=== PATIENT | male | born 1960 | race Caucasian/White ===

== ENCOUNTER 2016-10-10 15:27 | Emergency (ER) | payer OTHER ==
[2016-10-10] MEDS ORDERED: Sodium Chloride 0.9% 10 ML Syringe FLUSH PRN (16:19)
[2016-10-10] MEDS ORDERED: Sodium Chloride 0.9% 1,000 ML IV ONE (16:20)
--- NOTE | 2016-10-10 16:24 | EDM.PDOC ---
ED HPI DIABETIC EMERGENCY - General Chief Complaint: Diabetic Complaint Stated Complaint: Elevated blood sugar Time Seen by Provider: 10/10/16 16:00 Source of Information: Reports: Patient, Old records (Obtained from [facility] ), RN notes reviewed History Limitations: Reports: No limitations - History of Present Illness INITIAL COMMENTS - FREE TEXT/NARRATIVE: 55 year old male presents to the ED for evaluation of elevated glucose. He had routine labs drawn this morning at [facility]. His glucose at that time was 459. Dr. Overton adjusted his medications and set him up to see a physician office clin asst tomorrow. The patient borrowed a friend's glucometer later today and rechecekd his glucose at which time it was 539. This concerned him and is what prompted him to come to the ED. He denies fever, chills, nausea, diarrhea. He's had an ongoing cough since June. He says he coughs so hard it makes him vomit in the morning. He is able to keep food and fluids down throughout the day. He reports increased thirst as of lately. Dr. Overton also performed a chest x-ray today which was reportedly normal. He was started on Cephalexin for bronchitis and took his first dose this afternoon. He says he's felt fatigued lately. - Related Data Allergies/ADRs: Allergies Allergy/AdvReac Type Severity Reaction Status Date / Time No Known Allergies Allergy Verified 02/23/14 13:21 Home Meds: Home Meds Allopurinol [Zyloprim] 300 mg PO DAILY 07/13/15 [History] Isosorbide Mononitrate [Imdur] 30 mg PO DAILY 07/13/15 [History] amLODIPine [Norvasc] 5 mg PO DAILY 07/13/15 [History] Canagliflozin/Metformin HCl [Invokamet 150-1,000 mg Tablet] 1 tab PO DAILY 10/10 [History] Cephalexin 500 mg PO BID 10/10/16 [History] Metoprolol Succinate 50 mg PO DAILY 10/10/16 [History] Sertraline [Zoloft] 50 mg PO DAILY 10/10/16 [History] SitaGLIPtin [Januvia] 100 mg PO DAILY 10/10/16 [History] Valsartan 320 mg PO DAILY 10/10/16 [History] atorvaSTATin [Lipitor] 40 mg PO DAILY 10/10/16 [History] Past Medical History Cardiovascular History: Reports: CAD, High cholesterol, Hypertension, [place] Gastrointestinal History: Reports: GERD Musculoskeletal History: Reports: Osteoarthritis Psychiatric History: Reports: Depression Endocrine/Metabolic History: Reports: Diabetes, type II - Past Surgical History GI Surgical History: Reports: Appendectomy, Yovani fundoplication Musculoskeletal Surgical History: Reports: Shoulder surgery Social & Family History - Tobacco Use Smoking Status *Q: Former Smoker Month Tobacco Last Used: 10 yrs - Caffeine Use Caffeine Use: Reports: Soda, Tea - Recreational Drug Use Recreational Drug Use: No - Living Situation & Occupation Living situation: Reports: with family ED ROS GENERAL - Review of Systems Review Of Systems: See Below Constitutional: Reports: fatigue. Denies: fever, chills, decreased appetite Respiratory: Reports: Cough. Denies: Shortness of Breath, Wheezing Cardiovascular: Reports: No symptoms. Denies: Chest pain Endocrine: Reports: high glucose, polydypsia. Denies: polyuria GI/Abdominal: Reports: Vomiting. Denies: Abdominal pain, Diarrhea, Nausea Neurological: Reports: No Symptoms. Denies: Headache ED EXAM GENERAL NO PERIP PULSE - Physical Exam Exam: See Below Exam Limited By: No limitations General Appearance: alert, WD/WN, no apparent distress Respiratory/Chest: no respiratory distress, lungs clear, normal breath sounds, no accessory muscle use Cardiovascular: regular rate, rhythm, no edema GI/Abdominal: normal bowel sounds, soft, non tender Neurological: alert, oriented, CN II-XII intact, normal cognition Skin Exam: Warm, Dry, Intact Course - Vital Signs Last Recorded V/S: Last Vital Signs Temp 97.0 F 10/10/16 15:35 Pulse 77 10/10/16 15:35 Resp 20 10/10/16 15:35 BP 111/88 10/10/16 15:35 Pulse Ox 95 10/10/16 15:35 - Orders/Labs/Meds Orders: Active Orders 24 hr Category Date Time Status Blood Glucose Check, Bedside [RC] ONETIME Care 10/10/16 16:10 Active Blood Glucose Check, Bedside [RC] ONETIME Care 10/10/16 17:38 Active Peripheral IV Care [RC] . DIRECTED Care 10/10/16 16:19 Active Sodium Chloride 0.9% [Saline Flush] Med 10/10/16 16:19 Active 10 ml FLUSH ASDIRECTED PRN Peripheral IV Insertion Adult [OM.PC] Stat Oth 10/10/16 16:19 Ordered Medication Orders Sodium Chloride (Saline Flush) 10 ml FLUSH ASDIRECTED PRN PRN Reason: Keep Vein Open Last Admin: 10/10/16 16:42 Dose: 10 ml Labs: Laboratory Tests 10/10/16 10/10/16 10/10/16 Range/Units 16:05 16:05 16:17 POC Glucose 306 H (70-105) mg/dL Serum Osmolality 305 H (280-300) mosm/kg Ketones 0.56 (0.0-0.3) mM 10/10/16 Range/Units 18:04 POC Glucose 348 H (70-105) mg/dL Serum Osmolality (280-300) mosm/kg Ketones (0.0-0.3) mM Meds: Medications Generic Name Dose Route Start Last Admin Trade Name Freq PRN Reason Stop Dose Admin Sodium Chloride 10 ml 10/10/16 16:19 10/10/16 16:42 Saline Flush FLUSH 10 ml ASDIRECTED PRN Administration Keep Vein Open Discontinued Medications Generic Name Dose Route Start Last Admin Trade Name Freq PRN Reason Stop Dose Admin Sodium Chloride 1,000 mls @ 999 mls/hr 10/10/16 16:20 10/10/16 16:40 Normal Saline IV 10/10/16 17:20 999 mls/hr ONETIME ONE Administration - Re-Assessments/Exams Free Text/Narrative Re-Assessment/Exam: Labs obtained from [facility]: CBC: WBC 10.8, H&H 14 and 42. Normal differential CMP: glucose 459, BUN 38, creatinine 1.71, sodium 132, potassium 4.4, chloride 95, anion gap 19, AST 44, ALT 63, Alk phos 170. [facility] reported that hepatitis c labs are pending. UA: trace ketones Initial glucose on arrival to ED was 306. The accuracy of the borrowed glucometer used at home is uncertain. This was discussed with the patient. I discussed this patient with Dr. Silva who recommends IV fluid bolus for dehydration and checking serum ketones and osmolality. 10/10/16 18:55 Serum osmo was delayed in the lab. Serum osmo came back at upper limits of normal 305. Will discharge patient home. He has close follow-up at [facility] scheduled for tomorrow. Discharge instructions as documented. Departure - Departure Time of Disposition: 18:57 Disposition: Home, Self-Care 01 Condition: good Clinical Impression: Hyperglycemia Instructions: Hyperglycemia Referrals: Neeraj Culver MD [Primary Care Provider] - Forms: ED Department Discharge Additional Instructions: Follow-up with electrical logging engineer tomorrow as scheduled Follow-up with Dr. Overton as soon as possible Return to ER with any worsening symptoms or additional concerns, or if you blood sugar remains elevated for two consecutive blood sugar checks. Continue your medications as prescribed Drink plenty of fluids - My Orders Last 24 Hours: My Active Orders 10/10/16 16:10 Blood Glucose Check, Bedside [RC] ONETIME 10/10/16 16:19 Peripheral IV Care [RC] . DIRECTED Sodium Chloride 0.9% [Saline Flush] 10 ml FLUSH ASDIRECTED PRN Peripheral IV Insertion Adult [OM.PC] Stat 10/10/16 17:38 Blood Glucose Check, Bedside [RC] ONETIME - Assessment/Plan Last 24 Hours: My Active Orders 10/10/16 16:10 Blood Glucose Check, Bedside [RC] ONETIME 10/10/16 16:19 Peripheral IV Care [RC] . DIRECTED Sodium Chloride 0.9% [Saline Flush] 10 ml FLUSH ASDIRECTED PRN Peripheral IV Insertion Adult [OM.PC] Stat 10/10/16 17:38 Blood Glucose Check, Bedside [RC] ONETIME
[2016-10-10 19:01] VITALS: BP 125/84
== END 2016-10-10 18:55 | disposition home or self-care (01) ==
LOC: JD.ED 15:27
DX: E11.65 Type 2 diabetes mellitus with hyperglycemia (principal); Z79.84 Long term (current) use of oral hypoglycemic drugs; I25.10 Atherosclerotic heart disease of native coronary artery without angina pectoris; I10 Essential (primary) hypertension; E78.00 Pure hypercholesterolemia, unspecified; L21.9 Seborrheic dermatitis, unspecified; M19.90 Unspecified osteoarthritis, unspecified site; F32.9 Major depressive disorder, single episode, unspecified; Z87.891 Personal history of nicotine dependence; Z79.899 Other long term (current) drug therapy
CPT/HCPCS: 36415; 82009; 82962; 83930; 96360; 99284; J7040; J7050; 99283

== ENCOUNTER 2016-11-17 14:06 | Emergency (ER) | payer OTHER ==
--- NOTE | 2016-11-17 14:16 | EDM.PDOC ---
ED HPI LOWER BACK PAIN/INJURY - General Chief Complaint: Genitourinary Problem Stated Complaint: BACK PAIN Time Seen by Provider: 11/17/16 14:16 - History of Present Illness INITIAL COMMENTS - FREE TEXT/NARRATIVE: 54-year-old male presents emergency room with pain with voiding. This pain started roughly 2-2 and half hours prior to arrival he has discomfort when trying to avoid and he has a vague right-sided ache however he denies really any sort of significant pain in his flanks he does not have pain that shoots into his testicles. He does describe pain on his penis when he tries to go and when he has to go but when he goes he just voids a very small amount. Patient denies any fevers or chills has not noticed any blood in his urine. The patient has a history of type 2 diabetes this is recently getting much better with more aggressive weight loss and treatment. Past medical history significant for appendicitis when he was much younger. Patient had an [place] about 10 years ago he has not had recent problems with chest pain or chest pressure or anginal equivalents. - Related Data Allergies/ADRs: Allergies Allergy/AdvReac Type Severity Reaction Status Date / Time No Known Allergies Allergy Verified 11/17/16 14:22 Home Meds: Home Meds Allopurinol [Zyloprim] 300 mg PO DAILY 07/13/15 [History] Isosorbide Mononitrate [Imdur] 30 mg PO DAILY 07/13/15 [History] Canagliflozin/Metformin HCl [Invokamet 150-1,000 mg Tablet] 1 tab PO DAILY 10/10 [History] Metoprolol Succinate 50 mg PO DAILY 10/10/16 [History] Sertraline [Zoloft] 50 mg PO DAILY 10/10/16 [History] SitaGLIPtin [Januvia] 100 mg PO DAILY 10/10/16 [History] Valsartan 320 mg PO DAILY 10/10/16 [History] atorvaSTATin [Lipitor] 40 mg PO DAILY 10/10/16 [History] Aspirin [Children's Aspirin] 81 mg PO DAILY 11/17/16 [History] Tamsulosin [Flomax] 0.4 mg PO Q24H #7 cap.er 11/17/16 [Rx] Past Medical History Cardiovascular History: Reports: CAD, High cholesterol, Hypertension, [place] Gastrointestinal History: Reports: GERD Musculoskeletal History: Reports: Osteoarthritis Psychiatric History: Reports: Depression Endocrine/Metabolic History: Reports: Diabetes, type II - Past Surgical History GI Surgical History: Reports: Appendectomy, Oyvani fundoplication Musculoskeletal Surgical History: Reports: Shoulder surgery Social & Family History - Tobacco Use Smoking Status *Q: Former Smoker Month Tobacco Last Used: 10 yrs - Caffeine Use Caffeine Use: Reports: Soda, Tea - Recreational Drug Use Recreational Drug Use: No - Living Situation & Occupation Living situation: Reports: with family ED ROS GENERAL - Review of Systems Review Of Systems: See Below Constitutional: Reports: no symptoms Respiratory: Reports: No Symptoms Cardiovascular: Reports: No symptoms GI/Abdominal: Reports: Abdominal pain (Vague pressure perhaps in the right side) : Reports: dysuria, frequency. Denies: discharge, flank pain, hematuria Musculoskeletal: Reports: no symptoms Skin: Reports: no symptoms Neurological: Reports: No Symptoms ED EXAM,LOWER BACK PAIN/INJURY - Physical Exam Exam: See Below Exam Limited By: No limitations General Appearance: alert, no apparent distress Head: atraumatic, normocephalic Respiratory/Chest: no respiratory distress, lungs clear, normal breath sounds Cardiovascular: regular rate, rhythm, no edema, no murmur GI/Abdominal: normal bowel sounds, soft, non tender (Male) Exam: No hernia, Normal inspection, Circumcised. No: Penile lesions, Scrotal swelling, Scrotum tenderness (L), Scrotum tenderness (R), Suprapubic fullness Back Exam: normal inspection. No: CVA tenderness (L), CVA tenderness (R) Extremities: normal inspection, no pedal edema Course - Vital Signs Last Recorded V/S: Last Vital Signs Temp 36.5 C 11/17/16 14:10 Pulse 71 11/17/16 19:22 Resp 18 11/17/16 14:10 BP 105/74 11/17/16 19:22 Pulse Ox 98 11/17/16 19:22 - Orders/Labs/Meds Orders: Active Orders 24 hr Category Date Time Status EKG Documentation Completion [RC] STAT Care 11/17/16 17:05 Active Labs: Laboratory Tests 11/17/16 11/17/16 11/17/16 Range/Units 14:30 15:10 15:10 WBC 11.94 H (4.23-9.07) K/mm3 RBC 4.07 L (4.63-6.08) M/mm3 Hgb 13.1 L (13.7-17.5) gm/L Hct 39.7 L (40.1-51.0) % MCV 97.5 H (79.0-92.2) fl MCH 32.2 (25.7-32.2) pg MCHC 33.0 (32.2-35.5) g/dl RDW Std Deviation 45.5 H (35.1-43.9) fL Plt Count 156 L (163-337) K/mm3 MPV 10.0 (9.4-12.3) fl Neutrophils % (Manual) 80 H (40-60) % Band Neutrophils % 0 (0-10) % Lymphocytes % (Manual) 14 L (20-40) % Atypical Lymphs % 0 % Monocytes % (Manual) 5 (2-10) % Eosinophils % (Manual) 1 (0.8-7.0) % Basophils % (Manual) 0 L (0.2-1.2) Platelet Estimate Adequate Plt Morphology Comment Normal RBC Morph Comment Normal Sodium 139 (136-145) mEq/L Potassium 5.8 H (3.5-5.1) mEq/L Chloride 107 (98-107) mEq/L Carbon Dioxide 18 L (21-32) mEq/L Anion Gap 19.8 H (5-15) BUN 49 H (7-18) mg/dL Creatinine 2.4 H (0.7-1.3) mg/dL Est Cr Clr Drug Dosing 32.46 mL/min Estimated GFR (MDRD) 28 (>60) mL/min BUN/Creatinine Ratio 20.4 H (14-18) Glucose 103 (74-106) mg/dL Uric Acid 4.4 (3.5-7.2) mg/dL Calcium 9.6 (8.5-10.1) mg/dL Urine Color Yellow (Yellow) Urine Appearance Clear (Clear) Urine pH 5.5 (5.0-8.0) Ur Specific [place] 1.025 (1.005-1.030) Urine Protein 2+ H (Negative) Urine Glucose (UA) 2+ H (Negative) Urine Ketones Negative (Negative) Urine Occult Blood 3+ H (Negative) Urine Nitrite Negative (Negative) Urine Bilirubin Negative (Negative) Urine Urobilinogen 0.2 (0.2-1.0) Ur Leukocyte Esterase Negative (Negative) Urine RBC 75-100 H (0-5) /hpf Urine WBC 0-5 (0-5) /hpf Ur Epithelial Cells 0-5 (0-5) /hpf Amorphous Sediment Few H (NOT SEEN) /hpf Urine Bacteria Moderate H (FEW) /hpf Urine Mucus Few (FEW) /hpf 11/17/16 Range/Units 16:12 WBC (4.23-9.07) K/mm3 RBC (4.63-6.08) M/mm3 Hgb (13.7-17.5) gm/L Hct (40.1-51.0) % MCV (79.0-92.2) fl MCH (25.7-32.2) pg MCHC (32.2-35.5) g/dl RDW Std Deviation (35.1-43.9) fL Plt Count (163-337) K/mm3 MPV (9.4-12.3) fl Neutrophils % (Manual) (40-60) % Band Neutrophils % (0-10) % Lymphocytes % (Manual) (20-40) % Atypical Lymphs % % Monocytes % (Manual) (2-10) % Eosinophils % (Manual) (0.8-7.0) % Basophils % (Manual) (0.2-1.2) Platelet Estimate Plt Morphology Comment RBC Morph Comment Sodium (136-145) mEq/L Potassium 5.8 H (3.5-5.1) mEq/L Chloride (98-107) mEq/L Carbon Dioxide (21-32) mEq/L Anion Gap (5-15) BUN (7-18) mg/dL Creatinine (0.7-1.3) mg/dL Est Cr Clr Drug Dosing mL/min Estimated GFR (MDRD) (>60) mL/min BUN/Creatinine Ratio (14-18) Glucose (74-106) mg/dL Uric Acid (3.5-7.2) mg/dL Calcium (8.5-10.1) mg/dL Urine Color (Yellow) Urine Appearance (Clear) Urine pH (5.0-8.0) Ur Specific [place] (1.005-1.030) Urine Protein (Negative) Urine Glucose (UA) (Negative) Urine Ketones (Negative) Urine Occult Blood (Negative) Urine Nitrite (Negative) Urine Bilirubin (Negative) Urine Urobilinogen (0.2-1.0) Ur Leukocyte Esterase (Negative) Urine RBC (0-5) /hpf Urine WBC (0-5) /hpf Ur Epithelial Cells (0-5) /hpf Amorphous Sediment (NOT SEEN) /hpf Urine Bacteria (FEW) /hpf Urine Mucus (FEW) /hpf Meds: Medications Discontinued Medications Generic Name Dose Route Start Last Admin Trade Name Freq PRN Reason Stop Dose Admin Hydrocodone Bitart/Acetaminophen 1 tab 11/17/16 16:51 11/17/16 17:24 [place] 325-5 Mg PO 11/17/16 16:52 1 tab ONETIME ONE Administration Sodium Chloride 2,000 mls @ 999 mls/hr 11/17/16 17:04 11/17/16 18:23 Normal Saline IV 11/17/16 19:04 999 mls/hr ONETIME ONE Infusion Sodium Chloride Confirm 11/17/16 18:23 11/17/16 18:24 Normal Saline Administered 11/17/16 18:24 Not Given Dose 1,000 mls @ as directed .ROUTE .STK-MED ONE Tamsulosin HCl 0.4 mg 11/17/16 16:51 11/17/16 17:25 Flomax PO 11/17/16 16:52 0.4 mg ONETIME ONE Administration - Re-Assessments/Exams Free Text/Narrative Re-Assessment/Exam: 11/17/16 15:11 He feels like he cannot completely empty his bladder. Bladder scan at most is 8 mls. 11/17/16 16:54 Laboratory evaluations concerning with a creatinine of 2.4 and potassium of 5.8 we repeated potassium it came back at 5.8. CAT scan was obtained which is a typical symptoms for kidney stone and microscopic hematuria Johanne.D. has kidney stone 1.5 mm stone located within the distal right ureter at the UVJ area With his increased potassium increased creatinine and increased BUN we'll give him a couple liters of NS and were to have to hold his metformin containing medications and hold his valsartan. 11/17/16 19:[address] Gordon who agrees with the disposition and will followup closely with the patient. Departure - Departure Time of Disposition: 19:08 Disposition: Home, Self-Care 01 Clinical Impression: Kidney stone on right side, Hyperkalemia, Renal insufficiency Prescriptions: Tamsulosin [Flomax] 0.4 mg PO Q24H #7 cap.er Instructions: Hyperkalemia, [id number], Kidney Stones, [id number] Referrals: Neeraj Culver MD [Primary Care Provider] - Forms: ED Department Discharge Additional Instructions: Return to the emergency room with any questions or problems. Stop Invokamet and valsartan. Followup with Dr. Gordon tomorrow you will need repeat blood work and further instructions on blood pressure and diabetes treatment. - My Orders Last 24 Hours: My Active Orders 11/17/16 17:05 EKG Documentation Completion [RC] STAT - Assessment/Plan Last 24 Hours: My Active Orders 11/17/16 17:05 EKG Documentation Completion [RC] STAT
--- NOTE | 2016-11-17 16:37 | CT ---
CT abdomen and pelvis Technique: Multiple axial sections were obtained from above the dome of the diaphragm inferiorly through the pubic symphysis. Intravenous and oral contrast was not utilized. Study has been performed as a ureteral stone protocol. Comparison: No previous abdominal imaging. Findings: Right and left kidneys show no abnormal calcifications. Right ureter is mildly prominent. This ureteral prominence is caused by a small stone measuring about 1.5-2 mm which is located within the distal ureter at the UVJ. No other abnormal calcifications are seen along the course of the ureters. Cyst is identified within the left kidney measuring approximately 2.9 cm. Visualized lung bases shows nothing acute. Liver shows minimal fatty infiltration. Spleen appears within normal limits. Increased density noted near the gastroesophageal junction presumably due to previous surgery. Adrenal glands show no nodule. Pancreas is within normal limits. Gallbladder shows no calcified gallstones. Aorta shows atherosclerotic change without aneurysmal dilatation. No retroperitoneal adenopathy or mesenteric abnormalities are seen. No pelvic mass or adenopathy is seen. No free fluid or inflammatory change is seen within the abdomen or within the pelvis. Appendix is not visualized with certainty. Bone window settings shows a unilateral spondylolytic defect on the right side at L5-S1. Mild scattered degenerative change is seen. Impression: 1. Slightly prominent right ureter caused by 1.5 mm stone located within the distal right ureter at the UVJ. 2. Other incidental findings as described above. Diagnostic code #3
[2016-11-17] MEDS ORDERED: Tamsulosin 0.4 MG Cap.ER PO ONE (16:51)
[2016-11-17] MEDS ORDERED: Acetaminophen/HYDROcodone 325-5 MG Tab PO ONE (16:51)
[2016-11-17] MEDS ORDERED: Sodium Chloride 0.9% 2,000 ML IV ONE (17:04)
[2016-11-17] MEDS ORDERED: Sodium Chloride 0.9% 1,000 ML ONE (18:23)
[2016-11-17 19:31] VITALS: BP 105/74
== END 2016-11-17 19:30 | disposition home or self-care (01) ==
LOC: JD.ED 14:06
DX: N20.0 Calculus of kidney (principal); E87.5 Hyperkalemia; N28.9 Disorder of kidney and ureter, unspecified; I10 Essential (primary) hypertension; I25.2 Old myocardial infarction; I25.10 Atherosclerotic heart disease of native coronary artery without angina pectoris; E78.00 Pure hypercholesterolemia, unspecified; K21.9 Gastro-esophageal reflux disease without esophagitis; E11.9 Type 2 diabetes mellitus without complications; F32.9 Major depressive disorder, single episode, unspecified; M19.90 Unspecified osteoarthritis, unspecified site; Z90.49 Acquired absence of other specified parts of digestive tract; Z98.890 Other specified postprocedural states; Z87.891 Personal history of nicotine dependence; Z79.82 Long term (current) use of aspirin; Z79.899 Other long term (current) drug therapy
CPT/HCPCS: 36415; 74176; 80048; 81001; 84132; 84550; 85025; 93005; 96360; 96361; 99283; A9270; J7040; 99284; 99284-25

== ENCOUNTER 2019-08-18 06:39 | Emergency (ER) | payer OTHER ==
[2019-08-18 06:50] VITALS: BP 168/128; PULSE 86
[2019-08-18] MEDS ORDERED: Lidocaine 1% with EPINEPHrine 1:100,000 20 ML MDV INJECT ONE (07:00)
[2019-08-18] MEDS ORDERED: Lidocaine/EPINEPHrine/Tetracaine Soln 1 ML TOP ONE (07:00)
--- NOTE | 2019-08-18 07:04 | EDM.PDOC ---
ED HPI GENERAL MEDICAL PROBLEM - General Chief Complaint: Skin Complaint Stated Complaint: BOIL NEAR GROIN AREA Time Seen by Provider: 08/18/19 06:56 Source of Information: Reports: Patient History Limitations: Reports: No Limitations - History of Present Illness INITIAL COMMENTS - FREE TEXT/NARRATIVE: The patient presents with an abscess to the left groin. This has been bothering him for a couple weeks. It seemed to be getting better for a few days but now it has gotten larger and more painful. He has no fever or chills. Onset: Gradual Duration: Week(s): Location: Reports: Other (Left groin) Quality: Reports: Sharp Severity: Moderate Improves with: Reports: None Worsens with: Reports: None Associated Symptoms: Reports: No Other Symptoms Left Leg Pain Score (Numeric/FACES): 8 - Related Data Allergies Allergy/AdvReac Type Severity Reaction Status Date / Time No Known Allergies Allergy Verified 08/18/19 06:46 Home Meds: Home Meds Cephalexin [Keflex] 500 mg PO QID #40 capsule 08/18/19 [Rx] Ibuprofen 800 mg PO ONCALL PRN 08/18/19 [History] Past Medical History HEENT History: Reports: Impaired Vision Other HEENT History: Wears glasses Cardiovascular History: Reports: CAD, High Cholesterol, Hypertension, [place] Gastrointestinal History: Reports: GERD Genitourinary History: Reports: Renal Calculus Musculoskeletal History: Reports: Osteoarthritis Psychiatric History: Reports: Depression Endocrine/Metabolic History: Reports: Diabetes, Type II - Past Surgical History GI Surgical History: Reports: Appendectomy, Yovani Fundoplication Musculoskeletal Surgical History: Reports: Shoulder Surgery Social & Family History - Family History Family Medical History: Noncontributory - Tobacco Use Smoking Status *Q: Current Every Day Smoker Years of Tobacco use: 35 Packs/Tins Daily: 0.2 - Caffeine Use Caffeine Use: Reports: Soda, Tea - Alcohol Use Days Per Week of Alcohol Use: 3 Number of Drinks Per Day: 2 Total Drinks Per Week: 6 - Recreational Drug Use Recreational Drug Use: No - Living Situation & Occupation Living situation: Reports: with Family ED ROS GENERAL - Review of Systems Review Of Systems: See Below Constitutional: Reports: No Symptoms HEENT: Reports: No Symptoms Respiratory: Reports: No Symptoms Cardiovascular: Reports: No Symptoms Endocrine: Reports: No Symptoms GI/Abdominal: Reports: No Symptoms : Reports: No Symptoms Musculoskeletal: Reports: Other (Left groin abscess) ED EXAM, SKIN/RASH Exam: See Below Exam Limited By: No Limitations General Appearance: Alert, No Apparent Distress Ears: Normal External Exam Nose: Normal Inspection Head: Atraumatic, Normocephalic Neck: Normal Inspection Respiratory/Chest: No Respiratory Distress Extremities: Other (Left groin has some erythema and edema and an abscess with fluctuance) ED SKIN PROCEDURES - I&D Site: Left groin Skin Prep: Other (Chlorprep) Local Anesthesia: Lidocaine: 1% with EPI (and LET) Drainage: Purulent, Bloody, Large Amount Probed to Break Up Loculations: Yes Packed With: 1/2 in. Iodoform Complications: No Course - Vital Signs Last Recorded V/S: Last Vital Signs Temp 97.4 F 08/18/19 06:47 Pulse 86 08/18/19 06:47 Resp 18 08/18/19 06:47 BP 168/128 H 08/18/19 06:47 Pulse Ox 93 L 08/18/19 06:47 - Orders/Labs/Meds Meds: Medications Discontinued Medications Generic Name Dose Route Start Last Admin Trade Name Dulce PRN Reason Stop Dose Admin Lidocaine/Epinephrine 20 ml 08/18/19 07:00 08/18/19 07:11 Xylocaine 1% With Epinephrine 1:100,000 INJECT 08/18/19 07:01 20 ml ONETIME ONE Administration Lidocaine/Tetracaine 1 ml 08/18/19 07:00 08/18/19 07:11 Let Soln TOP 08/18/19 07:01 1 ml ONETIME ONE Administration - Re-Assessments/Exams Free Text/Narrative Re-Assessment/Exam: 08/18/19 07:04 I will drain the abscess. Departure - Departure Time of Disposition: 07:55 Disposition: Home, Self-Care 01 Condition: Good Clinical Impression: Abscess - Discharge Information *PRESCRIPTION DRUG MONITORING PROGRAM REVIEWED*: No *COPY OF PRESCRIPTION DRUG MONITORING REPORT IN PATIENT BJORN: No Prescriptions: Cephalexin [Keflex] 500 mg PO QID #40 capsule Referrals: PCP,None [Primary Care Provider] - Brian Tariq MD [Physician] - 1 Week Forms: ED Department Discharge Additional Instructions: Soak in a sits bath with soapy water 2 times per day for 5 days. Have the packing removed in about 3 to 5 days. If if falls out sooner that is okay. Take the keflex 4 times per day for 10 days. I obtained cultures. If I need to change the antibiotics I will call you. Please return if you are worse. Sepsis Event Note - Evaluation Sepsis Screening Result: No Definite Risk - Focused Exam Vital Signs: Vital Signs Temp Pulse Resp BP Pulse Ox 08/18/19 06:47 97.4 F 86 18 168/128 H 93 L Date Exam was Performed: 08/18/19 Time Exam was Performed: 07:50
== END 2019-08-18 08:08 | disposition home or self-care (01) ==
LOC: JD.ED 06:39
DX: L02.214 Cutaneous abscess of groin (principal); I25.10 Atherosclerotic heart disease of native coronary artery without angina pectoris; I10 Essential (primary) hypertension; I25.2 Old myocardial infarction; E11.9 Type 2 diabetes mellitus without complications; F17.210 Nicotine dependence, cigarettes, uncomplicated
CPT/HCPCS: 10060; 10061; 87075; 87076; 87077; 87181; 87186; 87205; 99283; 99283-25

== ENCOUNTER 2020-02-21 10:48 | Emergency (ER) | payer OTHER ==
--- NOTE | 2020-02-21 11:10 | EDM.PDOC ---
ED HPI GENERAL MEDICAL PROBLEM - General Chief Complaint: Lower Extremity Injury/Pain Stated Complaint: TOE IS TURNING BLACK Time Seen by Provider: 02/21/20 11:10 Source of Information: Reports: Patient History Limitations: Reports: No Limitations - History of Present Illness INITIAL COMMENTS - FREE TEXT/NARRATIVE: 59-year-old male presents to the ED with a deep dark purple discoloration to the distal aspect of his right great toe. He was concerned that he may be developing gangrene. He is a type II diabetic controlled with diet and is currently on no medications after losing 50 pounds of weight. 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 I suspect it is repetitive type trauma to the distal aspect of the toe to have precipitated the bruise or discoloration of the toe. He has no pain in the toe. Onset: Unknown/Unsure (Covered dark purple discoloration of the distal right gr eat toe this morning.) Onset Date: 02/21/20 Duration: Hour(s): Location: Reports: Lower Extremity, Right (Dark purple discoloration of the distal right great toe.) Quality: Reports: Other (No pain just purple discoloration) Severity: Moderate Improves with: Reports: None Worsens with: Reports: None Context: Reports: Other (No known injuries.). Denies: Activity, Exercise, Lifting, Sick Contact, Trauma Associated Symptoms: Reports: No Other Symptoms Treatments LAUNCHING [employer]: Reports: Other (see below) (None.) - Related Data Allergies Allergy/AdvReac Type Severity Reaction Status Date / Time No Known Allergies Allergy Verified 08/18/19 06:46 Home Meds: Home Meds Ibuprofen 800 mg PO ONCALL PRN 08/18/19 [History] cephALEXin [Keflex] 500 mg PO QID #40 capsule 08/18/19 [Rx] Past Medical History HEENT History: Reports: Hard of Hearing, Impaired Vision Other HEENT History: Wears glasses, bilateral hearing aides. Cardiovascular History: Reports: CAD, High Cholesterol, Hypertension, DC Gastrointestinal History: Reports: GERD Genitourinary History: Reports: Renal Calculus Musculoskeletal History: Reports: Fracture, Osteoarthritis Psychiatric History: Reports: Depression Endocrine/Metabolic History: Reports: Diabetes, Type II - Infectious Disease History Infectious Disease History: Reports: Chicken Pox, Measles, Mumps - Past Surgical History HEENT Surgical History: Reports: Adenoidectomy, Tonsillectomy GI Surgical History: Reports: Appendectomy, Yovani Fundoplication Musculoskeletal Surgical History: Reports: Shoulder Surgery Social & Family History - Family History Family Medical History: Noncontributory - Tobacco Use Smoking Status *Q: Never Smoker Second Hand Smoke Exposure: No - Caffeine Use Caffeine Use: Reports: Coffee - Alcohol Use Days Per Week of Alcohol Use: 4 Number of Drinks Per Day: 4 Total Drinks Per Week: 16 - Recreational Drug Use Recreational Drug Use: No - Living Situation & Occupation Living situation: Reports: , with Family Occupation: Employed Review of Systems - Review of Systems Review Of Systems: See Below Constitutional: Reports: No Symptoms Eyes: Reports: Glasses Mouth/Throat: Reports: No Symptoms Respiratory: Reports: No Symptoms Cardiovascular: Reports: No Symptoms GI/Abdominal: Reports: No Symptoms Genitourinary: Reports: Other (Urinary frequency with nocturia x2.) Musculoskeletal: Reports: Back Pain (And problems with low back pain) Skin: Reports: No Symptoms Neurological: Reports: No Symptoms Psychiatric: Reports: Depression, Mood Lability ED EXAM, GENERAL - Physical Exam Exam: See Below (Tree of depression in the past) Exam Limited By: No Limitations General Appearance: Alert, WD/WN, No Apparent Distress, Other (Temperature is 36.8 with heart rate of 88 and sinus respiratory is 20 with sats of 96% on room air BP is elevated at 207 120. He was advised that he will have to have his blood pressure checked more frequently. He is quite apprehensive the day and I suspect the reason for his elevated blood pressure) Eye Exam: Bilateral Eye: Normal Inspection Peripheral Pulses: 2+: Posterior Tibial (L), Posterior Tibial (R), Dorsalis Pedis (L), Dorsalis Pedis (R) Extremities: Other (Examination was limited to his right great toe. He has foot and toes are warm to palpation or at least normal temperature. There is ecchymoses of the dorsal aspect of the right great toe extending past the PIP joint bilaterally. It involves mostly the tip of the toe as well as the plantar surface. All of his toenails contain fungal infection.) Neurological: Alert, Oriented, CN II-XII Intact, Normal Cognition Psychiatric: Anxious Skin Exam: Warm, Dry, Intact, Normal Color, No Rash Course - Vital Signs Last Recorded V/S: Last Vital Signs Temp 36.8 C 02/21/20 10:55 Pulse 88 02/21/20 10:55 Resp 20 02/21/20 10:55 BP 207/120 H 02/21/20 10:55 Pulse Ox 96 02/21/20 10:55 - Radiology Interpretation Free Text/Narrative:: 59-year-old male presents to the ED for evaluation of purple discoloration of his right great toe that he discovered this morning in the shower. He has no pain in the toe. His concern was developing gangrene as he has a history of diabetes. However on examination there is a deep bruise or deep purple discoloration of the dorsal volar and tip of the great toe with no increased warmth or fluctuation. This is a deep tissue bruise or contusion likely due to repetitive trauma. Over the weekend he was on his knees a good deal placing paving stones with steel toed boots on place. I suspect this is the cause. Patient reassured no treatment is indicated at this time Departure - Departure Time of Disposition: 11:19 Disposition: Home, Self-Care 01 Condition: Fair Clinical Impression: Contusion of great toe, right Qualifiers: Encounter type: initial encounter Damage to nail status: without damage Qualified Code(s): S90.111A - Contusion of right great toe without damage to nail, initial encounter - Discharge Information *PRESCRIPTION DRUG MONITORING PROGRAM REVIEWED*: Not Applicable *COPY OF PRESCRIPTION DRUG MONITORING REPORT IN PATIENT BJORN: Not Applicable Instructions: Contusion Referrals: PCP,None [Primary Care Provider] - Forms: ED Department Discharge Additional Instructions: Evaluation in the emergency room today in regards to discovery of dark purple discoloration to the entire tip or distal aspect of the right great toe this morning. On examination this proves to be a deep tissue bruise likely from repetitive trauma from work done over the weekend while placing paving stones. The areas normal temperature and there is no evidence of poor blood supply to the toe to suggest developing gangrene. The bruise will resolve but it will take close to 3 weeks to completely dissipate. No treatment is advised. Sepsis Event Note (ED) - Evaluation Sepsis Screening Result: No Definite Risk - Focused Exam Vital Signs: Vital Signs Temp Pulse Resp BP Pulse Ox 02/21/20 10:55 36.8 C 88 20 207/120 H 96
[2020-02-21 11:35] VITALS: BP 211/116; PULSE 78
== END 2020-02-21 11:30 | disposition home or self-care (01) ==
LOC: JD.ED 10:48
DX: S90.111A Contusion of right great toe without damage to nail, initial encounter (principal); I10 Essential (primary) hypertension; E11.9 Type 2 diabetes mellitus without complications; I25.10 Atherosclerotic heart disease of native coronary artery without angina pectoris; I25.2 Old myocardial infarction; W22.8XXA Striking against or struck by other objects, initial encounter
CPT/HCPCS: 99283

== ENCOUNTER 2024-03-12 18:16 | Emergency (ER) | payer MEDICARE, OTHER ==
[2024-03-12 18:40] LABS: BASOPHILS ABSOLUTE AUTO 0.1 K/mm3 (0.0-0.2); BASOPHILS PERCENT AUTO 0.7 % (0.0-1.0); EOSINOPHILS ABSOLUTE AUTO 0.2 K/mm3 (0.0-0.4); EOSINOPHILS PERCENT AUTO 1.5 % (0.0-6.0); HEMATOCRIT 43.7 % (42.0-52.0); HEMOGLOBIN 15.4 gm/dl (14.0-18.0); IMMATURE GRAN ABSOLUTE AUTO 0.05 K/mm3 (0.00-0.05); IMMATURE GRAN PERCENT AUTO 0.5 % (0.0-0.4); LYMPHOCYTES ABSOLUTE AUTO 1.6 K/mm3 (1.0-4.8); LYMPHOCYTES PERCENT AUTO 14.6 % (24.0-44.0); MEAN CORPUSCULAR HEMOGLOBIN 34.5 pg (28.0-32.0); MEAN CORPUSCULAR HGB CONC 35.2 g/dl (32.0-36.0); MEAN CORPUSCULAR VOLUME 97.8 fl (83.0-99.0); MEAN PLATELET VOLUME 10.1 fl (9.4-12.4); MONOCYTES ABSOLUTE AUTO 0.9 K/mm3 (0.0-0.8); MONOCYTES PERCENT AUTO 8.6 % (0.0-8.0); NEUTROPHILS PERCENT AUTO 74.1 % (41.0-71.0); PLATELET COUNT,PLT 141 K/mm3 (150-400); RED BLOOD CELL COUNT 4.47 M/mm3 (4.52-5.90); WHITE BLOOD CELL COUNT,WBC 10.72 K/mm3 (3.9-11.3)
[2024-03-12 18:54] LABS: INR 1.1; PROTHROMBIN TIME 11.6 SECONDS (9.7-12.0)
[2024-03-12 18:55] LABS: PTT,PARTIAL THROMBOPLSTIN TIME 25.1 SECONDS (21.7-31.4)
[2024-03-12] MEDS: Iopamidol 755 Mg/ML 100 ML Bottle IVPUSH ONE (19:05)
[2024-03-12] MEDS: Sodium Chloride 0.9% 100 ML IV SCH (19:05)
[2024-03-12 19:07] LABS: ALANINE AMINOTRANSFERASE,ALT 52 U/L (16-63); ALBUMIN 4.1 g/dl (3.4-5.0); ALKALINE PHOSPHATASE 154 U/L (46-116); ANION GAP 16.8 (5-15); ASPARTATE AMNIOTRANSFERASE,AST 30 U/L (15-37); BILIRUBIN TOTAL 1.3 mg/dL (0.2-1.0); BLOOD UREA NITROGEN,BUN 13 mg/dL (7-18); BUN/CREATININE RATIO 14.4 (14-18); CALCIUM 9.7 mg/dL (8.5-10.1); CARBON DIOXIDE,CO2 24 mEq/L (21-32); CHLORIDE,CL 99 mEq/L (98-107); CHOLESTEROL HDL 35 mg/dL (40-59); CHOLESTEROL LDL DIRECT 103 mg/dL (<100); CHOLESTEROL TOTAL 173 mg/dL (<200); CREATININE 0.9 mg/dL (0.7-1.3); ESTIMATED GFR 95 mL/min (>60); HEMOGLOBIN A1C 10.9 %; MAGNESIUM 1.5 mg/dL (1.8-2.4); POTASSIUM,K 3.8 mEq/L (3.5-5.1); PROTEIN TOTAL,TP 8.1 g/dl (6.4-8.2); SODIUM,NA 136 mEq/L (136-145); TROPONIN I HIGH SENSITIVITY 9 pg/mL (<=76)
[2024-03-12 19:08] LABS: GLUCOSE RANDOM 408 mg/dL (70-99); LACTIC ACID 2.4 mmol/L (0.4-2.0)
[2024-03-12] MEDS: Tenecteplase 50 MG Kit IV ONE (19:13)
[2024-03-12] MEDS: Sodium Chloride 0.9% 1,000 ML IV SCH (19:15)
[2024-03-12] MEDS: Insulin Regular in 0.9 % NACL 100 ML IV SCH (19:38)
[2024-03-12 20:02] VITALS: PULSE 83
[2024-03-12] MEDS: Tenecteplase 50 MG Kit ONE (20:06)
[2024-03-12] MEDS: Magnesium Sulfate/Water 4 GM in Premix Bag 1 BAG IV ONE (20:11)
[2024-03-12 20:15] VITALS: BP 158/99
== END 2024-03-12 20:14 ==
LOC: JD.ED 18:16
DX: E83.42 Hypomagnesemia (principal); I63.512 Cerebral infarction due to unspecified occlusion or stenosis of left middle cerebral artery; I25.10 Atherosclerotic heart disease of native coronary artery without angina pectoris; I10 Essential (primary) hypertension; I25.2 Old myocardial infarction; E11.9 Type 2 diabetes mellitus without complications; Z90.49 Acquired absence of other specified parts of digestive tract
CPT/HCPCS: 36415; 37195; 70450; 70496; 70498; 71045; 80053; 80307; 82465; 82947; 83036; 83605; 83718; 83721; 83735; 83880; 84484; 85025; 85610; 85730; 86140; 96374; 99285; J1815; J3101; J3475; J3490; J7030; Q9967; 93010